=== PATIENT | female | born 1995 | race Caucasian/White ===

== ENCOUNTER 2021-04-01 18:47 | Emergency (ER) | payer BC ==
--- NOTE | 2021-04-01 19:18 | EDM.PDOC ---
ED HPI GENERAL MEDICAL PROBLEM - General Chief Complaint: General Stated Complaint: CHECK Time Seen by Provider: 04/01/21 19:05 Source of Information: Reports: Patient History Limitations: Reports: No Limitations - History of Present Illness INITIAL COMMENTS - FREE TEXT/NARRATIVE: Kayli, 25-year-old female, presents emergency department here for evaluation of quantitative hCG. She experienced a miscarriage this past summer and underwent a D&C 24 January 2021. Since that time she has had fluctuating hormonal imbalance with positive test followed up with low hCG that was repeated to show increase and then decrease. They have fluctuated and their significance questioning a chemical versus hormonal imbalance. She has not had a regular period since the D&C, and is been in close contact with her family practice OB physician Carla Allen, in [place]. She was advised that in the event she had any change in her discharge that the consideration for a repeat hCG ,that if elevated of significance would lead to a pelvic ultrasound. She underwent pelvic testing and labs 20 March and treated for the results. She denies any pain nor cramping at this time, with slight change in pink to red discharge. She had called to the facility here earlier this afternoon to discuss this and was advised that we do not do ultrasound but do have lab capabilities in-house. She then presented here a couple hours later for the laboratory testing to determine if she needs to drive for her OB follow-up ultrasound. Onset: Gradual Duration: Week(s): Location: Reports: Abdomen, Pelvis Quality: Denies: Ache, Burning, Pressure, Sharp, Stabbing, Throbbing Severity: Moderate Improves with: Reports: None Worsens with: Reports: None Context: Reports: Activity Associated Symptoms: Reports: No Other Symptoms - Related Data Allergies Allergy/AdvReac Type Severity Reaction Status Date / Time No Known Allergies Allergy Verified 04/01/21 19:06 Past Medical History Cardiovascular History: Reports: Heart Murmur (Resolved upon echo completion) STERILISATION TECHNICIAN History: Reports: , Spontaneous LMP (Approximate): Other (See Below) (Irregular post spont abort with flucuating HCG levels recent negtive that then increased and is monitored by OB-INSURANCE CLAIMS SPECIALIST.) Social & Family History - Family History Family Medical History: No Pertinent Family History ED ROS GENERAL - Review of Systems Review Of Systems: Comprehensive ROS is negative, except as noted in HPI. ED EXAM, GENERAL - Physical Exam Exam: See Below Free Text/Narrative:: Alert, oriented, in no acute distress. There is no cyanosis nor pallor. HEENT is negative discharge or deformity Thorax is clear with no wheezes nor crackles. Cardiac is regular no murmur appreciated. No flank pain no abdominal discomfort. vaginal is declined as she recently underwent complete work-up with her STERILISATION TECHNICIAN post D&C this past month. Needs CBC and quantitative hCG obtained to determine if she needs to travel for ultrasound. Course - Vital Signs Last Recorded V/S: Last Vital Signs Temp 98.3 F 04/01/21 19:00 Pulse 99 04/01/21 19:00 Resp 20 04/01/21 19:00 BP 127/75 04/01/21 19:00 Pulse Ox 100 04/01/21 19:00 - Orders/Labs/Meds Orders: Active Orders 24 hr Category Date Time Status HCG QUALITATIVE,SERUM [CHEM] Stat Lab 04/01/21 19:12 Ordered HCG QUANTITATIVE [CHEM] Stat Lab 04/01/21 19:12 Ordered Labs: Laboratory Tests 04/01/21 04/01/21 Range/Units 19:20 19:20 WBC 6.19 (5.00-10.00) 10^3/uL RBC 4.74 (3.80-5.50) 10^6/uL Hgb 13.2 (12.0-16.0) g/dL Hct 40.1 (37.0-47.0) % MCV 84.6 (82.0-92.0) fL MCH 27.8 (27.0-31.0) pg MCHC 32.9 (32.0-36.0) g/dL RDW 13.4 (11.5-14.5) % Plt Count 222 (150-400) 10^3/uL MPV 11.5 H (7.4-10.4) fL Immature Gran % (Auto) 0.0 (0.0-5.0) % Neut % (Auto) 72.7 H (50.0-70.0) % Lymph % (Auto) 20.5 (20.0-40.0) % [place] % (Auto) 6.0 (2.0-8.0) % Eos % (Auto) 0.5 L (1.0-3.0) % Baso % (Auto) 0.3 (0.0-1.0) % Neut # (Auto) 4.50 (2.50-7.00) 10^3/uL Lymph # (Auto) 1.27 (1.00-4.00) 10^3/uL [place] # (Auto) 0.37 (0.10-0.80) 10^3/uL Eos # (Auto) 0.03 L (0.10-0.30) 10^3/uL Baso # (Auto) 0.02 (0.00-0.10) 10^3/uL Immature Gran # (Auto) 0.00 (0.00-0.50) 10^3/uL HCG, Quant 11 mIU/mL - Re-Assessments/Exams Free Text/Narrative Re-Assessment/Exam: 04/01/21 19:46 Hemoglobin 13.2 today was 13.3 on 20 March, [facility]. 04/01/21 20:57 hCG tonight 11.1. Was noted to be 108.6 per [facility] on the third and 161.2 per [facility] on 27 March. These results would conclude either a very early with spontaneous or a chemical . We did discuss in detail the follow-up aspects and the intermediate weight decision for the option of ultrasound. Kayli agrees at this time with no symptoms that she will await until Friday to speak with her clinic and discussed with them what they prefer for follow-up unless symptoms should exchange specialist the course of the next 36 hours. Departure - Departure Time of Disposition: 20:21 Disposition: Home, Self-Care 01 Condition: Good Clinical Impression: Elevated serum hCG in female, not , Spotting - Discharge Information *PRESCRIPTION DRUG MONITORING PROGRAM REVIEWED*: Not Applicable *COPY OF PRESCRIPTION DRUG MONITORING REPORT IN PATIENT CLAU: Not Applicable Instructions: Menorrhagia, [id number] Referrals: Carla Allen MD [Primary Care Provider] - Forms: ED Department Discharge Additional Instructions: You need to go home and rest. Contact your STERILISATION TECHNICIAN department on Friday as they will receive a copy of this note from [facility]. In the event you develop cramping or significant discharge you would need to be seen for reevaluation. In the event hemorrhaging was of concern you can return to the emergency department which time we would stabilize you and transfer you to an appropriate facility. In the event spotting changes with no significant bleeding nor cramping but concerns develop, you may be best served by presenting to the facility that has ultrasound capability to accompany the laboratory evaluation. Continue your medications as directed and follow-up in the upcoming week at least by telephone with your providers office. Sepsis Event Note (ED) - Evaluation Sepsis Screening Result: No Definite Risk - Focused Exam Vital Signs: Vital Signs Temp Pulse Resp BP Pulse Ox 04/01/21 19:00 98.3 F 99 20 127/75 100 - Problem List & Annotations (1) Elevated serum hCG in female, not SNOMED Code(s): 932704757 Code(s): E34.9 - ENDOCRINE DISORDER, UNSPECIFIED Status: Acute Priority: Medium Current Visit: Yes (2) Spotting SNOMED Code(s): 7504746 Code(s): N92.0 - EXCESSIVE AND FREQUENT MENSTRUATION WITH REGULAR CYCLE Status: Acute Priority: Medium Current Visit: Yes - Problem List Review Problem List Initiated/Reviewed/Updated: Yes - My Orders Last 24 Hours: My Active Orders 04/01/21 19:12 HCG QUALITATIVE,SERUM [CHEM] Stat HCG QUANTITATIVE [CHEM] Stat - Assessment/Plan Last 24 Hours: My Active Orders 04/01/21 19:12 HCG QUALITATIVE,SERUM [CHEM] Stat HCG QUANTITATIVE [CHEM] Stat Plan: You need to go home and rest. Contact your STERILISATION TECHNICIAN department on Friday as they will receive a copy of this note from [facility]. In the event you develop cramping or significant discharge you would need to be seen for reevaluation. In the event hemorrhaging was of concern you can return to the emergency department which time we would stabilize you and transfer you to an appropriate facility. In the event spotting changes with no significant bleeding nor cramping but concerns develop, you may be best served by presenting to the facility that has ultrasound capability to accompany the laboratory evaluation. Continue your medications as directed and follow-up in the upcoming week at least by telephone with your providers office.
== END 2021-04-01 20:36 | disposition home or self-care (01) ==
LOC: KA.ED 18:47
DX: N92.0 Excessive and frequent menstruation with regular cycle (principal); R89.1 Abnormal level of hormones in specimens from other organs, systems and tissues
CPT/HCPCS: 36415; 84702; 84703; 85025; 99283; 99284

== ENCOUNTER 2021-04-27 19:49 | Emergency (ER) | payer BC ==
--- NOTE | 2021-04-27 21:00 | EDM.PDOC ---
ED HPI GENERAL MEDICAL PROBLEM - General Chief Complaint: General Stated Complaint: CHECK HCG Time Seen by Provider: 04/27/21 20:20 Source of Information: Reports: Patient - History of Present Illness INITIAL COMMENTS - FREE TEXT/NARRATIVE: Kayli, 25-year-old female, has been undergoing specialty services with INSTRUMENTATION SPECIALIST in an attempt to conceive. She unfortunately experienced a miscarriage this past spring and has had varying lab findings since then. She was seen by a specialist with recommendation for quantitative hCG and progesterone level as soon as she had findings. This occurred tonight wit home . She denies any fever chills or malaise. She denies any complaint of cramping, nor vaginal discharge. Bowel and bladder have been with no concerns. Onset: Today Duration: Minutes: Location: Reports: Other (No complaint lab analysis only) Severity: Mild Improves with: Reports: None Worsens with: Reports: None - Related Data Allergies Allergy/AdvReac Type Severity Reaction Status Date / Time No Known Allergies Allergy Verified 04/01/21 19:06 Home Meds: Home Meds . [No Known Home Meds] 04/27/21 [History] Past Medical History Cardiovascular History: Reports: Heart Murmur (Resolved upon echo completion) INSTRUMENTATION SPECIALIST History: Reports: , Spontaneous Psychiatric History: Reports: Anxiety - Infectious Disease History Infectious Disease History: Reports: Chicken Pox, Influenza - Past Surgical History HEENT Surgical History: Reports: Oral Surgery Other HEENT Surgeries/Procedures: wisdom teeth Female Surgical History: Reports: D&C Social & Family History - Family History Family Medical History: No Pertinent Family History - Tobacco Use Tobacco Use Status *Q: Never Tobacco User - Caffeine Use Caffeine Use: Reports: Soda - Recreational Drug Use Recreational Drug Use: No ED ROS GENERAL - Review of Systems Review Of Systems: Comprehensive ROS is negative, except as noted in HPI. ED EXAM, GENERAL - Physical Exam Exam: See Below Free Text/Narrative:: Alert, oriented with no complaint, nor any distress. She acknowledges she is here for lab work only as it was recommended per her INSTRUMENTATION SPECIALIST specialist to have this done in the upon initial recognition. There is no cyanosis nor pallor. No respiratory distress, she is able to speak in full sentences with no difficulty. Course - Vital Signs Last Recorded V/S: Last Vital Signs Temp 98.6 F 10/01/21 20:05 Pulse 99 04/27/21 20:05 Resp 20 04/27/21 20:05 BP 140/63 04/27/21 20:05 Pulse Ox 99 04/27/21 20:05 - Orders/Labs/Meds Orders: Active Orders 24 hr Category Date Time Status PROGESTERONE [REF] Stat Lab 04/27/21 20:30 Received Labs: Laboratory Tests 04/27/21 Range/Units 20:30 HCG, Quant 54 mIU/mL Departure - Departure Time of Disposition: 21:59 Disposition: Home, Self-Care 01 Condition: Good Clinical Impression: Elevated serum hCG, Laboratory test - Discharge Information *PRESCRIPTION DRUG MONITORING PROGRAM REVIEWED*: Not Applicable *COPY OF PRESCRIPTION DRUG MONITORING REPORT IN PATIENT CLAU: Not Applicable Instructions: Care Referrals: PCP,Not In Area [Primary Care Provider] - Carla Allen MD [Ordering Only Provider] - Forms: ED Department Discharge Additional Instructions: hCG positive for 1 to 2-week gestation at the time of this visit. Remaining lab work will result Friday or Friday will be contacted with that In regards to your supplemental medication, I would recommend contacting [facility] and speak with INSTRUMENTATION SPECIALIST to see if they would give you an answer or if they would wait for your progesterone level to return on Friday. Follow-up as needed Sepsis Event Note (ED) - Focused Exam Vital Signs: Vital Signs Temp Pulse Resp BP Pulse Ox 04/27/21 20:05 98.6 F 99 20 140/63 99 - Problem List & Annotations (1) Laboratory test Status: Acute (2) Elevated serum hCG SNOMED Code(s): 573908192 Code(s): E34.9 - ENDOCRINE DISORDER, UNSPECIFIED Status: Acute - Problem List Review Problem List Initiated/Reviewed/Updated: Yes - My Orders Last 24 Hours: My Active Orders 04/27/21 20:30 PROGESTERONE [REF] Stat - Assessment/Plan Last 24 Hours: My Active Orders 04/27/21 20:30 PROGESTERONE [REF] Stat Plan: hCG positive for 1 to 2-week gestation at the time of this visit. Remaining lab work will result Friday or Friday will be contacted with that In regards to your supplemental medication, I would recommend contacting [facility] and speak with INSTRUMENTATION SPECIALIST to see if they would give you an answer or if they would wait for your progesterone level to return on Friday. Follow-up as needed
== END 2021-04-27 22:08 | disposition home or self-care (01) ==
LOC: KA.ED 19:49
DX: O02.81 Inappropriate change in quantitative human chorionic gonadotropin (hCG) in early pregnancy (principal)
CPT/HCPCS: 36415; 84144; 84702; 99282; 99283